=== PATIENT | female | born 1935 | race Caucasian/White ===

== ENCOUNTER 2019-12-23 11:24 | Outpatient (CLI) | payer OTHER ==
[~2019-12-23 11:24] MED LIST: CELEXA40 MG; CLONAZEPAM0.5 MG; DITROPAN XL5 MG; NABUMETONE500 MG PO; PERCOCET 5/3251 TAB PO
== END 2019-12-23 11:36 | disposition home or self-care (01) ==
LOC: RAD 11:24
PROVIDERS: ATTEND Orthopaedic Surgery
DX: M19.041 Primary osteoarthritis, right hand (principal)

== ENCOUNTER 2022-02-22 12:04 | Outpatient (CLI) | payer OTHER | END 2022-02-22 12:09 | disposition home or self-care (01) | LOC: PPH VACUNA 12:04 | PROVIDERS: ATTEND Emergency Medicine Pediatric Emergency Medicine | DX: Z23 Encounter for immunization (principal) ==

== ENCOUNTER 2022-03-28 09:15 | Inpatient (IN) | payer OTHER ==
[~2022-03-28] VITALS: Ht 165.1 cm; Wt 59.9 kg
[2022-03-28] MEDS ORDERED: GABAPENTIN100 M2 PO (11:52)
[2022-03-28] MEDS ORDERED: MYRBETRIQ25 MG PO (11:52)
[2022-04-01] MEDS ORDERED: COLACE100 MG PO (07:28)
[2022-04-01] MEDS ORDERED: PERCOCET 5-3251 EACH PO (07:29)
[2022-04-01] MEDS ORDERED: MEDROLPACK PO (07:29)
[2022-04-01] MEDS ORDERED: ESTRADIOL42.5 GM (09:35)
[2022-04-01] MEDS ORDERED: MYRBETRIQ50 MG (09:35)
[2022-04-01] MEDS ORDERED: METHENAMINE HIPP1 GM (09:35)
[2022-04-01] MEDS ORDERED: TRAVOPROST2.5 ML (09:35)
[2022-04-01] MEDS ORDERED: ATORVASTATIN CA20 MG (09:35)
[2022-04-01] MEDS ORDERED: MONTELUKAST SOD10 MG (09:35)
[2022-04-01] MEDS ORDERED: DORZOLAMIDE-TIM10 ML (09:35)
== END 2022-04-02 12:52 | disposition home or self-care (01) | DRG 473 ==
LOC: SURG 04-01 05:30 → O/R 04-01 05:30 → SURG 04-01 07:00 → PED 04-01 11:05 → O/R 04-01 11:30 → SURG 04-01 12:01
PROVIDERS: ADMIT Orthopaedic Surgery Orthopaedic Surgery of the Spine; ATTEND Orthopaedic Surgery Orthopaedic Surgery of the Spine
PROC: 0RT30ZZ Resection of Cervical Vertebral Disc, Open Approach (ICD-10-PCS; 2022-04-01)
PROC: 0RG20A0 Fusion of 2 or more Cervical Vertebral Joints with Interbody Fusion Device, Anterior Approach, Anterior Column, Open Approach (ICD-10-PCS; principal; 2022-04-01 07:00)
DX: M50.021 Cervical disc disorder at C4-C5 level with myelopathy (principal)